=== PATIENT | male | born 1960 ===

== ENCOUNTER 2017-02-27 08:46 | Day surgery (SDC) | payer SELFPAY ==
[2017-02-22 08:17] VITALS: BMI 26.6
[2017-02-27] MEDS ORDERED: Lactated Ringer's 1,000 ML IV ONE (12:05)
[2017-02-27] MEDS ORDERED: Propofol 10 mg/ml Inj (20 ML) ONE (12:09)
[2017-02-27] MEDS ORDERED: Midazolam 2 MG/2 ML VIAL ONE (12:09)
[2017-02-27] MEDS ORDERED: Lidocaine 1% Inj (20ml) IJ ONE ×2 (12:15)
[2017-02-27] MEDS ORDERED: Lidocaine 1% Inj (20ml) ONE (12:16)
[2017-02-27 14:05] VITALS: O2SAT 96
[2017-02-27 16:11] VITALS: BP 101/62; PULSE 52; RESP 8; TEMP 97.9
--- NOTE | 2017-02-27 16:21 | OP ---
PROCEDURE DATE: 02/27/2017 PREOPERATIVE DIAGNOSIS: Multiple genital, penile, and perianal condylomas. POSTOPERATIVE DIAGNOSIS: Multiple genital, penile, and perianal condylomas. PROCEDURE: Fulguration of multiple genital, penile, and perianal condylomas. SURGEON: Ja Watson MD ANESTHESIA: IV sedation and 1% Xylocaine local anesthesia. DESCRIPTION OF PROCEDURE: The patient was placed on the operating room table in the supine position given IV sedation. I also used some local 1% Xylocaine for local anesthetic affect. At this point, I begin to fulgurate probably 40 condylomas that were around the scrotum, perineal area, shaft of the penis, in the area of the priapus, as well as the perianal area. Once all the visible areas were fulgurated adequately, then the patient was taken from the operating room in good condition. There was no other intervention performed. Ja Watson MD
== END 2017-02-27 16:31 | disposition home or self-care (01) ==
LOC: H.OPSURG 08:46
PROVIDERS: ATTEND Urology
DX: A63.0 Anogenital (venereal) warts (principal); E78.5 Hyperlipidemia, unspecified
CPT/HCPCS: 46924; 54065; J0690; J2001; J2250; J2405; J2704; J3010; J7030; J7120

== ENCOUNTER 2017-06-12 08:26 | Day surgery (SDC) | payer SELFPAY ==
[2017-02-22 08:17] VITALS: BMI 26.6
[2017-06-12 08:57] LABS: HEMATOCRIT 43.8 % (35.0-51.0); MEAN CELL VOLUME 86.8 fl (80.0-94.0); MEAN CORPUSCULAR HEMOGLOBIN 28.8 pg (27.0-31.0); MEAN CORPUSCULAR HGB CONC 33.2 g/dL (33.0-37.0); RED CELL DISTRIBUTION WIDTH 14.4 % (11.5-14.5); WHITE BLOOD COUNT 4.4 K/uL (4.8-10.8)
[2017-06-12 09:04] VITALS: RESP 18
[2017-06-12 09:27] LABS: ALB/GLOB RATIO 1.4 (1.0-2.1); ALKALINE PHOSPHATASE 71 U/L (38-126); ALT/SGPT 44 U/L (21-72); AST/SGOT 41 U/L (17-59); BILIRUBIN,TOTAL 0.8 mg/dl (0.2-1.3); BLOOD UREA NITROGEN 16 mg/dl (9-20); CALCIUM 10.1 mg/dL (8.4-10.2); CARBON DIOXIDE 25 mmol/L (22-30); CHLORIDE 106 mmol/L (98-107); GFR AFRICAN-AMERICAN > 60; GLUCOSE,RANDOM 94 mg/dL (75-110); POTASSIUM 3.9 MMOL/L (3.6-5.0); SODIUM 143 mmol/l (132-148); TOTAL PROTEIN 7.8 G/DL (6.3-8.2)
--- NOTE | 2017-06-12 10:33 | RAD ---
HISTORY: preop COMPARISON: No prior. TECHNIQUE: Chest PA and lateral FINDINGS: LUNGS: No acute consolidation. Small elliptical shaped nodular density right lung apex again noted. Findings consistent with small granuloma. PLEURA: No significant pleural effusion identified. No pneumothorax apparent. CARDIOVASCULAR: Normal. OSSEOUS STRUCTURES: No significant abnormalities. VISUALIZED UPPER ABDOMEN: Normal. OTHER FINDINGS: None. IMPRESSION: No acute consolidation. Stable granuloma right lung apex
[2017-06-12] MEDS ORDERED: ceFAZolin IV 1 gm in Dextrose 1 GM/50 ML BAG IVPB ONE (11:05)
[2017-06-12] MEDS ORDERED: Propofol 10 mg/ml Inj (20 ML) ONE (11:43)
[2017-06-12] MEDS ORDERED: Lidocaine 4% (Laryng-O-Jet) Kit MM ONE (11:44)
[2017-06-12] MEDS ORDERED: Midazolam 2 MG/2 ML VIAL ONE (11:44)
[2017-06-12] MEDS ORDERED: Lactated Ringer's 1,000 ML IV ONE (11:45)
[2017-06-12] MEDS ORDERED: Succinylcholine 200 mg/10 ml Inj IV ONE (11:45)
[2017-06-12] MEDS ORDERED: HYDROmorphone 0.5 mg/0.5 ml ISec IVP PRN (12:22)
[2017-06-12] MEDS ORDERED: Lactated Ringer's 1,000 ML IV SCH (12:30)
[2017-06-12 14:23] VITALS: BP 134/72; PULSE 63; TEMP 97.9
[2017-06-12 14:25] VITALS: O2SAT 96
--- NOTE | 2017-06-13 00:19 | CARD ---
APPROVED REPORT EKG Measurement Heart [id number] <Conclusion> Sinus bradycardia Otherwise normal ECG
--- NOTE | 2017-06-20 06:15 | OP ---
PROCEDURE DATE: 06/12/2017 PREOPERATIVE DIAGNOSIS: Multiple penile condylomas. POSTOPERATIVE DIAGNOSIS: Multiple penile condylomas. PROCEDURE: Fulguration of multiple penile condylomas. DESCRIPTION OF PROCEDURE: The patient was placed on the operating room table in the supine position. The area of the groin was draped and prepped in a sterile manner. Using IV sedation at this time, the patient was prepped in a sterile manner. At this time, using a cautery pencil, I was able to identify multiple penile condylomas as well as in the area of the base and lateral sides of the penis. Each involved visual condylomas were cauterized completely. Once this was done, some bacitracin was placed over the wound site and then the patient was taken from the operating room in good condition. Ja Watson MD
== END 2017-06-12 14:50 | disposition home or self-care (01) ==
LOC: H.OPSURG 08:26
PROVIDERS: ATTEND Urology
DX: A63.0 Anogenital (venereal) warts (principal); E78.5 Hyperlipidemia, unspecified; M54.9 Dorsalgia, unspecified
CPT/HCPCS: 36415; 54065; 71020; 80053; 85027; 85610; 85730; 93005; J0330; J0690; J2001; J2250; J2704; J3010; J7030; J7120

== ENCOUNTER 2018-03-29 20:19 | Emergency (ER) | payer OTHER, SELFPAY ==
[2018-03-29 20:19] VITALS: BMI 26.6
[2018-03-29 20:28] VITALS: TEMP 98.1
--- NOTE | 2018-03-29 20:49 | ED PDOC ---
HPI: Male Pain Time Seen by Provider: 03/29/18 20:48 Chief Complaint (Nursing): Male Genitourinary Chief Complaint (Provider): HEMATURIA History Per: Patient (57 Y/O MALE HERE WITH RIGHT FLANK PAIN X 2 EPISODES YESTERDAY AND SUBSEQUENT HEMATURIA HERE FOR EVALUATION. STATES LAST EPISODE OF DISCOMFORT WAS AT 2PM. NO FEVERS/CHILLS/VOMITING.) Past Medical History Reviewed: Historical Data, Nursing Documentation, Vital Signs Vital Signs: Last Vital Signs Temp 98.1 F 03/29/18 20:25 Pulse 65 03/29/18 20:25 Resp 16 03/29/18 20:25 BP 136/82 03/29/18 20:25 Pulse Ox 99 03/29/18 20:25 - Medical History PMH: Hypercholesterolemia, Pneumonia Denies: Anemia, Chronic Kidney Disease Other PMH: URINARY RETENTION - Surgical History Surgical History: Cholecystectomy Other surgeries: PROSTATE SX - Family History Family History: States: No Known Family Hx - Home Medications Home Medications: Ambulatory Orders Medication Instructions Recorded No Known Home Med 06/12/17 - Allergies Allergies/Adverse Reactions: Allergies Allergy/AdvReac Type Severity Reaction Status Date / Time No Known Allergies Allergy Verified 05/26/14 20:18 Review of Systems ROS Statement: Except As Marked, All Systems Reviewed And Found Negative Physical Exam - Reviewed Nursing Documentation Reviewed: Yes Vital Signs Reviewed: Yes - Physical Exam Appears: Positive for: Well, Non-toxic, No Acute Distress Head Exam: Positive for: ATRAUMATIC, NORMAL INSPECTION, NORMOCEPHALIC Skin: Positive for: Normal Color, Warm, DRY Eye Exam: Positive for: EOMI, Normal appearance, PERRL ENT: Positive for: Normal ENT Inspection Neck: Positive for: Normal, Painless ROM Cardiovascular/Chest: Positive for: Regular Rate, Rhythm Respiratory: Positive for: CNT, Normal Breath Sounds Gastrointestinal/Abdominal: Positive for: Normal Exam, Soft Back: Positive for: Normal Inspection Extremity: Positive for: Normal ROM Neurologic/Psych: Positive for: Alert, Oriented - Laboratory Results Result Diagrams: 03/29/18 21:30 03/29/18 21:30 - ECG O2 Sat by Pulse Oximetry: 99 - Progress ED Course And Treament: ns [address] abd/pelvis: no renal stone noted. patient has been comfortable in ED without any repeat episode of hematuria. Disposition - Clinical Impression Clinical Impression: Flank pain, Hematuria - Patient ED Disposition Is Patient to be Admitted: No - Disposition Referrals: Ja Watson MD [Medical Doctor] - Disposition: Routine/Home Disposition Time: 23:29 Condition: FAIR Instructions: Blood in the Urine (Hematuria) in Adults, Flank Pain (DC) Print Language: AUSTRALIAN
[2018-03-29] MEDS ORDERED: Sodium Chloride 0.9% 1,000 ML IV STA (20:51)
[2018-03-29 21:44] LABS: BASO % 0.5 % (0.0-2.0); EOS # 0.1 K/uL (0.0-0.7); EOS % 2.8 % (0.0-4.0); HEMOGLOBIN 13.6 g/dL (12.0-18.0); LYMPH # 1.9 K/uL (1.0-4.3); MEAN CELL VOLUME 85.7 fl (80.0-94.0); MEAN CORPUSCULAR HGB CONC 33.8 g/dL (33.0-37.0); MEAN PLATELET VOLUME 7.4 fl (7.2-11.7); MONO # 0.7 K/uL (0.0-0.8); MONO % 13.2 % (0.0-10.0); NEUT # 2.3 K/uL (1.8-7.0); NEUT % 45.5 % (50.0-75.0); NRBC % 0.1 % (0.0-0.0); RBC 4.71 Mil/uL (4.40-5.90); RED CELL DISTRIBUTION WIDTH 15.2 % (11.5-14.5)
[2018-03-29 21:49] LABS: ALB/GLOB RATIO 1.3 (1.0-2.1); ALBUMIN 4.1 g/dL (3.5-5.0); ALT/SGPT 45 U/L (21-72); AST/SGOT 39 U/L (17-59); BLOOD UREA NITROGEN 19 mg/dl (9-20); CALCIUM 9.8 mg/dL (8.4-10.2); GFR NON-AFRICAN AMERICAN > 60
[2018-03-29 22:06] LABS: URINE BILIRUBIN NEGATIVE (NEGATIVE); URINE BLOOD NEGATIVE (NEGATIVE); URINE CLARITY CLEAR (Clear); URINE COLOR YELLOW (YELLOW); URINE GLUCOSE (UA) NEG (Normal); URINE LEUKOCYTE ESTERASE NEG Leu/uL (Negative); URINE PROTEIN NEGATIVE (NEGATIVE); URINE UROBILINOGEN 0.2-1.0 mg/dL (0.2-1.0)
[2018-03-30 01:34] VITALS: BP 124/64; PULSE 58; RESP 18; O2SAT 97
--- NOTE | 2018-03-30 11:00 | CT ---
Date of service: 03/29/2018 PROCEDURE: CT Abdomen and Pelvis without intravenous contrast HISTORY: R/O KIDNEY STONE RIGHT FLANK PAIN COMPARISON: CT scan of the abdomen and pelvis dated 09/09/2011 TECHNIQUE: Contiguous images were obtained from the domes of the diaphragms to the upper thighs without the administration of intravenous contrast. Oral contrast was not administered. Radiation dose: Total exam DLP = 551.4 mGy-cm. This CT exam was performed using one or more of the following dose reduction techniques: Automated exposure control, adjustment of the mA and/or kV according to patient size, and/or use of iterative reconstruction technique. FINDINGS: LOWER THORAX: Unremarkable. LIVER: Unremarkable. No gross lesion or ductal dilatation. GALLBLADDER AND BILE DUCTS: Prior cholecystectomy with surgical clips in place. PANCREAS: Unremarkable. No gross lesion or ductal dilatation. SPLEEN: Unremarkable. ADRENALS: Unremarkable. No mass. KIDNEYS AND URETERS: Unremarkable. No hydronephrosis. No solid mass. VASCULATURE: Unremarkable. No aortic aneurysm. BOWEL: Prominent amount of retained colonic stool. No obstruction. No gross mural thickening. APPENDIX: Thin-walled, large caliber appendix, measuring up to 10 mm, filled with air, and without periappendiceal stranding. PERITONEUM: Unremarkable. No free fluid. No free air. LYMPH NODES: Unremarkable. No enlarged lymph nodes. BLADDER: Unremarkable. REPRODUCTIVE: Unremarkable. BONES: No acute fracture. OTHER FINDINGS: None. IMPRESSION: No obstructive uropathy or evidence of recently passed genitourinary calculus. Prominent amount of retained colonic stool. No acute abdominal pelvic pathology.
== END 2018-03-30 00:04 | disposition home or self-care (01) ==
LOC: H.ER 20:19
DX: R10.31 Right lower quadrant pain (principal); R31.9 Hematuria, unspecified; E78.00 Pure hypercholesterolemia, unspecified
CPT/HCPCS: 74176; 80053; 81003; 85025; 87086; 99283; J7030

== ENCOUNTER 2018-06-08 05:57 | Emergency (ER) | payer OTHER ==
[2018-06-08 05:58] VITALS: BMI 26.6
[2018-06-08 06:15] VITALS: BP 123/70; PULSE 77; RESP 18; TEMP 97.8; O2SAT 96
--- NOTE | 2018-06-08 06:25 | ED PDOC ---
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 Denies hemoptysis, weight loss, night sweats, chills. Patient was concerned because he thought he had TB. Patient reports he took no meds prior to arrival, but admits to taking ampicillin given to him by his daughter. PMD: [facility] Past Medical History Reviewed: Historical Data, Nursing Documentation, Vital Signs Vital Signs: Last Vital Signs Temp 97.8 F 06/08/18 06:12 Pulse 77 06/08/18 06:12 Resp 18 06/08/18 06:12 BP 123/70 06/08/18 06:12 Pulse Ox 96 06/08/18 06:12 - Medical History PMH: Hypercholesterolemia, Pneumonia Denies: Anemia, Chronic Kidney Disease - Surgical History Surgical History: Cholecystectomy - Family History Family History: States: Unknown Family Hx - Home Medications Home Medications: Ambulatory Orders Medication Instructions Recorded Benzonatate [Tessalon Perle] 100 mg PO TID #20 capsule 06/08/18 Ibuprofen [Motrin Tab] 600 mg PO Q6 #30 tab 06/08/18 - Allergies Allergies/Adverse Reactions: Allergies Allergy/AdvReac Type Severity Reaction Status Date / Time No Known Allergies Allergy Verified 06/08/18 06:12 Review of Systems ROS Statement: Except As Marked, All Systems Reviewed And Found Negative Constitutional: Positive for: Fever. Negative for: Chills, Sweats, Weakness, Malaise, Weight loss Respiratory: Positive for: Cough. Negative for: Shortness of Breath, Hemoptysis, SOB with Exertion, Pleuritic Pain, Sputum Physical Exam - Reviewed Nursing Documentation Reviewed: Yes Vital Signs Reviewed: Yes - Physical Exam Appears: Positive for: Well, Non-toxic, No Acute Distress Head Exam: Positive for: ATRAUMATIC, NORMAL INSPECTION, NORMOCEPHALIC Skin: Positive for: Normal Color, Warm, DRY Eye Exam: Positive for: EOMI, Normal appearance, PERRL ENT: Positive for: Normal ENT Inspection Neck: Positive for: Normal, Painless ROM Cardiovascular/Chest: Positive for: Regular Rate, Rhythm Respiratory: Positive for: CNT, Normal Breath Sounds Gastrointestinal/Abdominal: Positive for: Normal Exam, Soft. 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 Negative for: Motor/Sensory Deficits - ECG O2 Sat by Pulse Oximetry: 96 Pulse Ox Interpretation: Normal Medical Decision Making Medical Decision MakinAM A/P: 57 year old with HLD and previous TB presenting with cough --Patient is very well appearing, normal vitals, afebrile --Very unlikely TB given symptoms and well appearance --Will get CXR 635AM --CXR shows no acute pathology --Advised patient to take motrin and tessalon as needed --Advised patient to make an appointment with [facility] --Return precautions discussed Disposition - Clinical Impression Clinical Impression: Cough - Patient ED Disposition Is Patient to be Admitted: No - Disposition Referrals: [facility] [Outside] Disposition: Routine/Home Disposition Time: 06:38 Condition: GOOD Prescriptions: Benzonatate [Tessalon Perle] 100 mg PO TID #20 capsule Ibuprofen [Motrin Tab] 600 mg PO Q6 #30 tab Instructions: Cough in Adults Forms: [facility] ([employer]) Print Language: SERBIAN
--- NOTE | 2018-06-08 10:49 | RAD ---
Date of service: 06/08/2018 HISTORY: cough, hx of TB COMPARISON: Chest radiographs 06/12/2017. TECHNIQUE: Chest PA and lateral FINDINGS: LUNGS: No active pulmonary disease. Stable punctate right apical granuloma reiterated. PLEURA: No significant pleural effusion identified. No pneumothorax apparent. CARDIOVASCULAR: No aortic atherosclerotic calcification present. Normal cardiac size. No pulmonary vascular congestion. OSSEOUS STRUCTURES: No significant abnormalities. VISUALIZED UPPER ABDOMEN: Normal. OTHER FINDINGS: None. IMPRESSION: No acute cardiopulmonary disease appreciable in the interval. Tiny calcified granuloma reiterated right apex.
== END 2018-06-08 06:45 | disposition home or self-care (01) ==
LOC: H.ER 05:57
DX: R05 Cough (principal)